=== PATIENT | female | born 1955 | race Caucasian/White ===

== ENCOUNTER 2024-08-12 06:41 | Day surgery (SDC) | payer OTHER ==
[2024-07-31 16:20] VITALS: BMI 30.4
[2024-08-12 10:35] VITALS: RESP 18; TEMP 98.2
[2024-08-12 11:04] VITALS: PULSE 68
[2024-08-12 11:05] VITALS: BP 103/54
== END 2024-08-12 11:22 | disposition home or self-care (01) ==
LOC: JASU-ENDO 06:41
PROVIDERS: ATTEND Internal Medicine Gastroenterology
PROC: 0DJD8ZZ Inspection of Lower Intestinal Tract, Via Natural or Artificial Opening Endoscopic (ICD-10-PCS; principal; 2024-08-12 10:00)
DX: Z12.11 Encounter for screening for malignant neoplasm of colon (principal); K57.30 Diverticulosis of large intestine without perforation or abscess without bleeding; K64.4 Residual hemorrhoidal skin tags; K64.8 Other hemorrhoids